=== PATIENT | female | born 1995 | race Caucasian/White ===

== ENCOUNTER 2020-12-20 13:06 | Emergency (ER) | payer OTHER ==
[~2020-12-20 13:06] MED LIST: IBUPROFEN600 MG PO
[2020-12-20] MEDS ORDERED: BENADRYL 1% CRE15 GM TP (16:18)
[2020-12-20] MEDS ORDERED: IBUPROFEN800 MG PO (16:18)
== END 2020-12-20 16:25 | disposition home or self-care (01) ==
LOC: ER1 13:06
DX: H92.02 Otalgia, left ear (principal); M54.6 Pain in thoracic spine
CPT/HCPCS: 71046; 87081; 87880; 99284

== ENCOUNTER 2021-07-06 08:54 | Emergency (ER) | payer OTHER ==
[~2021-07-06 08:54] MED LIST changes: +BENADRYL 1% CRE15 GM TP; +IBUPROFEN800 MG PO
[2021-07-06 09:48] LABS: HEMOGLOBIN 12.8 gm/dl (12.3-15.3); RED BLOOD COUNT 4.43 M/UL (4.00-5.10); WHITE BLOOD COUNT 5.9 K/UL (4.5-11.0)
[2021-07-06 10:19] LABS: BUN/CREATININE RATIO 13 (0-10)
[2021-07-06] MEDS ORDERED: PROVERA10 MG PO (12:00)
== END 2021-07-06 13:57 | disposition home or self-care (01) ==
LOC: ER1 08:54
PROVIDERS: Emergency Medicine
DX: N93.9 Abnormal uterine and vaginal bleeding, unspecified (principal)
CPT/HCPCS: 76830; 80053; 81001; 84703; 85025; 85610; 85730; 99284